=== PATIENT | male | born 1935 | race Caucasian/White ===

== ENCOUNTER 2018-12-16 12:01 | Inpatient (IN) | payer MEDICARE, BC ==
[~2018-12-16] VITALS: Ht 167.6 cm; Wt 72.6 kg
--- NOTE | 2018-12-16 12:15 | NUR ---
RECIEVED FROM [facility]/PRIVATE CAR TO ROOM 1112B.CL IN REACH AND ORIENTED TO ROOM AND SURROUNDINGS.
[2018-12-16] MEDS ORDERED: CARTIA XT120 MG PO (12:35)
[2018-12-16] MEDS ORDERED: MELATONIN5 MG PO (12:36)
[2018-12-16] MEDS ORDERED: FISH OIL 1,0001 CA1 PO (12:36)
[2018-12-16] MEDS ORDERED: HYDROCHLOROTHIA25 MG PO (12:36)
[2018-12-16] MEDS ORDERED: PROTONIX40 MG PO (12:37)
[2018-12-16] MEDS ORDERED: PRAVACHOL20 MG PO (12:37)
[2018-12-16] MEDS ORDERED: FLOMAX0.4 MG PO (12:38)
[2018-12-16] MEDS ORDERED: INDERAL 40 MG T40 MG PO (12:38)
[2018-12-16 14:16] VITALS: BP 134/56; BMI 25.8
--- NOTE | 2018-12-16 16:00 | NUR ---
RESTING QUIETLY.CL IN REACH.
[2018-12-16 21:24] VITALS: BP 122/59
--- NOTE | 2018-12-16 22:36 | NUR ---
THE PATIENT WAS LYING IN BED AND WATCHING TELEVISION WHEN STAFF ENTERED HIS ROOM. BED IS IN THE LOW POSITION WITH SIDERAILS X2 AND CALL LIGHT WITHIN REACH. THE PATIENT WAS EDUCATED ON THE USE OF A CALL LIGHT AND DEMONSTRATES UNDERSTANDING VIA TEACHBACK METHOD. THE PATIENT APPEARS COMFORTABLE WITH NO QUESTIONS OR CONCERNS AT THIS TIME.
--- NOTE | 2018-12-17 03:24 | NUR ---
THE PATIENT APPEARS TO BE SLEEPING COMFORTABLY WITH SIDERAILS UP X2 AND CALL LIGHT WITHIN REACH.
[2018-12-17 06:30] LABS: BASOPHILS 0.2 % (0-2); EOSINOPHILS 2.5 % (0-7); HEMATOCRIT 27.3 % (42.0-54.0); HEMOGLOBIN 9.1 g/dL (13.5-17.5); IMMATURE GRANULOCYTES 0.4 % (0-5); LYMPHOCYTES 12.7 % (15-50); MCHC 33.3 g/dL (31.0-37.0); MCV 86.9 fL (80.0-100.0); MEAN PLATELET VOLUME 9.4 fL (7.4-10.4); MONOCYTES 15.6 % (2-11); NEUTROPHILS 68.6 % (40-80); PLATELET COUNT 218 10x3/uL (130-400); RBC 3.14 10x6/uL (4.20-6.10); RDW 14.1 % (11.5-14.5); WBC 4.5 10x3/uL (4.8-10.8)
[2018-12-17 06:42] LABS: CALC OSMOLALITY 276 mosm/kg (275-300); CALCIUM 8.3 mg/dL (8.5-10.1); CARBON DIOXIDE 24.3 mmol/L (21.0-32.0); CHLORIDE - SERUM 103 mmol/L (98-107); GLUCOSE 126 mg/dL (74-106); POTASSIUM - SERUM 3.8 mmol/L (3.5-5.1); SODIUM 136 mmol/L (136-145); UREA NITROGEN 21 mg/dL (7-18); eGFR NON AFRICAN AMERICAN 76 mL/min (90-120)
[2018-12-17 08:10] VITALS: BP 151/63
--- NOTE | 2018-12-17 08:30 | NUR ---
I have reviewed this patient and I concur with the Shift Assessment completed by the Licensed Practical Nurse today this shift.
--- NOTE | 2018-12-17 09:27 | NUR ---
PATIENT SITTING UP IN BED. ALERT/ORIENT. CALL LIGHT WITHIN REACH. VOICES NO NEEDS AT THIS TIME. WILL CONTINUE WITH PLAN OF CARE
--- NOTE | 2018-12-17 11:21 | NUR ---
DR Nell ROY INTO SEE PATIENT. NEW ORDERS RECEIVED
[2018-12-17 19:21] VITALS: BP 141/53
--- NOTE | 2018-12-17 19:49 | NUR ---
THE PATIENT WAS LYING IN BED WHEN STAFF ENTERED HIS ROOM. BED IS IN THE LOW POSITION WITH SIDERAILS X2 AND CALL LIGHT WITHIN REACH. THE PATIENT WAS EDUCATED ON THE NEED TO CALL FOR ASSISTANCE WHENEVER HE NEEDS TO GET OUT OF BED. THE PATIENT DEMONSTRATES UNDERSTANDING VIA TEACHBACK METHOD. THE PATIENT APPEARS COMFORTABLE WITH NO QUESTIONS OR CONCERNS AT THIS TIME.
[2018-12-18 07:03] LABS: BASOPHILS 0 % (0-2); EOSINOPHILS 2.3 % (0-7); HEMATOCRIT 29.1 % (42.0-54.0); HEMOGLOBIN 9.6 g/dL (13.5-17.5); IMMATURE GRANULOCYTES 0.2 % (0-5); LYMPHOCYTES 14.3 % (15-50); MCH 28.7 pg (26.0-34.0); MCV 86.9 fL (80.0-100.0); MEAN PLATELET VOLUME 9.8 fL (7.4-10.4); NEUTROPHILS 68.2 % (40-80); PLATELET COUNT 232 10x3/uL (130-400); RBC 3.35 10x6/uL (4.20-6.10); RDW 13.9 % (11.5-14.5); WBC 4.8 10x3/uL (4.8-10.8)
[2018-12-18 07:05] LABS: CALC OSMOLALITY 274 mosm/kg (275-300); CALCIUM 8.6 mg/dL (8.5-10.1); CARBON DIOXIDE 27.4 mmol/L (21.0-32.0); CHLORIDE - SERUM 102 mmol/L (98-107); CREATININE - SERUM 0.9 mg/dL (0.6-1.3); GLUCOSE 123 mg/dL (74-106); POTASSIUM - SERUM 3.8 mmol/L (3.5-5.1); SODIUM 136 mmol/L (136-145); UREA NITROGEN 18 mg/dL (7-18); eGFR NON AFRICAN AMERICAN 86 mL/min (90-120)
--- NOTE | 2018-12-18 07:57 | NUR ---
PATIENT SITTING UP IN BED TO EAT BREAKFAST. ALERT/ORIENT. CALL LIGHT WITHIN REACH. VOICES NO NEEDS AT THIS TIME. WILL CONTINUE WITH PLAN OF CARE
[2018-12-18 08:00] VITALS: BP 168/58
--- NOTE | 2018-12-18 09:47 | RHP ---
PATIENT: FCO DOVER MEDICAL RECORD: [id number] ACCOUNT: [id number] LOCATION:[facility]1112 : 37 ADMISSION DATE: 12/16/18 REHABILITATION HISTORY AND PHYSICAL EXAMINATION POST ADMISSION PHYSICIAN EXAMINATION ADMITTING DIAGNOSIS: Debility secondary to GI bleed. HISTORY OF PRESENT ILLNESS: The patient is an 83-year-old gentleman who presented to the ED with complaint of abdominal pain, persistent for 3-4 weeks, worsened on December 08 on the day of admit. He had been to the walk-in clinic 3 times. He had been diagnosed with UTI and placed on Bactrim, Cipro, and Macrobid. He had a CT of his abdomen and pelvis on November 29, did not show anything acute. He had positive stool for blood. He has continued to have occult blood during his stay in the acute hospital stay and had an acute GI consult. He had an EGD on December 15. Currently, on IV antibiotic therapy and IV meds; monitoring his labs closely; decreased H&H, requiring blood transfusion; generalized weakness; impaired mobility; gait disturbance; and decreased activity tolerance. He is at high risk for falls, lives alone, and has self-care deficits. These are all barriers to his discharge home. He lives at home alone in a condo, was independent with mobility and ADLs. Currently, he is set up for mod assist for ADLs and mod assist for his mobility. He and his friends, which have been coworkers in the past, are very active in his care. He has no immediate family. Plan is for him to return home hopefully at his prior level of functioning or possibly improved. COMORBIDITIES: Include hypertension, osteoarthritis, anemia, debility, deconditioning, and history of a broken ankle that causes problems with ambulation. 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 PAST MEDICAL HISTORY: Include ankle fracture. He has had arthritis, history of an endovascular stent for AAA, hypertension, hyperlipidemia, osteoarthritis, and former tobacco use. PAST SURGICAL HISTORY: Includes appendectomy and ORIF of his ankle, right shoulder surgery, and stenting to his AAA. ALLERGIES: PENICILLIN. CURRENT MEDICATIONS: Include propranolol 40 mg daily. He is on hydrochlorothiazide 25 mg daily and omega-3 four caps daily. He is on diltiazem 120 daily, Flomax 0.4 mg at bedtime, Pravachol 20 mg at bedtime, melatonin 6 mg at bedtime p.r.n., and Protonix 40 mg daily. HABITS: He does have a distant use of tobacco use. FAMILY HISTORY: Noncontributory. SOCIAL HISTORY: As above. The patient hopes to be able to return back home. He does have strong support from friends that we check on him on a regular basis. PHYSICAL EXAMINATION: VITAL SIGNS: Stable. He is afebrile. HISTORY AND PHYSICAL [id number] FCO DOVER GENERAL: A well-developed gentleman, in no acute distress, alert upon exam. HEENT: Normocephalic and atraumatic. Mucosa moist. NECK: Supple. No lymphadenopathy. LUNGS: Clear at this time. HEART: Regular rate and rhythm. No murmurs, rubs, or gallops. ABDOMEN: Soft, benign, nontender, and nondistended. Positive bowel sounds times 4. EXTREMITIES: No clubbing, cyanosis, or edema. He does have surgical changes to his ankle. NEUROLOGIC: He seems intact. LABORATORY DATA: His white count is 4.5, H&H of 9 and 27, and platelet count is noted to be 218. Sodium 136, potassium 3.8, BUN and creatinine of 21 and 1.0, and blood sugar is noted to be 126. ASSESSMENT: This is an 83-year-old gentleman admitted to the rehab with working diagnosis of debility, complicated by GI bleed. The patient has potential to make improvement. We will institute the following multidisciplinary therapies including, but not limited to physical, occupational, respiratory, speech, nutritional services, prosthetics, and orthotics. Given his complex medical conditions and risk for further medical complications, rehabilitation services cannot be provided at a low level of care such as correction facility. PLAN: 1. Admit to [facility] for intensive inpatient therapy to include the following disciplines; A. Physical therapy to improve gait, all transfer skills, and bed mobility to modified independent level. B. Occupational therapy to improve activities of daily living to modified independent level. C. Case management to assist with discharge planning and placement options. D. Nutrition to assist with nutritional needs. E. Rehabilitation nursing to assist in monitoring the patient's underlying medical conditions and to assist with any type of bowel or bladder management. 2. The patient's current medications and medical care will be continued. 3. The patient will be placed on standard fall precautions. 4. The patient's estimated length of stay is approximately 7-10 days. 5. We will discuss this patient during care team staff meeting this week. TRANSINT:[id number] Voice Confirmation ID: [id number] DOCUMENT ID: [id number] CHRIS notes whether there has been none or any medical/functional change since admission: - No change since pre-admission screen. CHRIS attests patient continues to be appropriate for IRF: - Continues to be appropriate. HISTORY AND PHYSICAL [id number] FCO DOVER,LIZA JOLLEY MD at 0947 CC: [id number] DICTATION DATE: 12/17/18 1102 DIE CUTTER APPRENTICE: 12/17/18 1529 ADM IN [place] [id number] [place] [address]
--- NOTE | 2018-12-18 11:13 | NUR ---
PATIENT IN REHAB ROOM. WORKING WITH PHYSICAL THERAPIST
[2018-12-18 12:49] VITALS: Ht 167.6 cm; Wt 72.6 kg
--- NOTE | 2018-12-18 14:04 | NUR ---
PATIENT AMBULATES WITH MODERATE ASST FROM BED TO WHEELCHAIR.
--- NOTE | 2018-12-18 15:23 | NUR ---
PATIENT IN REHAB ROOM. WORKING WITH OCCUPATIONAL THERAPIST
--- NOTE | 2018-12-18 19:25 | NUR ---
ASSESSMENT PER FLOW SHEET, PT DENIES FALTUS, BM YESTERDAY AND USING URINAL FOR VOIDING, EMPTIED 125 MLS OF DARK YELLOW URINE FROM URINAL, RIGHT ANKLE NOTED WITH EDEMA, PT STATES "IT'S BEEN DOING THAT EVER SINCE I BROKE MY ANKLE 40 YEARS AGO", PT DENIES NEEDS OR PAIN AT THIS TIME, BED IN LOW POSITION, SIDE RAILS X 2, CALL LIGHT IN REACH
--- NOTE | 2018-12-18 20:20 | NUR ---
PT WATCHING TV, SERVED FRESH H20, MENU TO PT TO FILL OUT, DENIES ANY ASSISTANCE WITH MENU
[2018-12-18 20:38] VITALS: BP 120/54
--- NOTE | 2018-12-18 21:19 | NUR ---
PT AWAKE, WATCHING TV, ADM 2100 MEDS PER MD ORDERS, SEE EMAR, PT DENIES NEEDS OR PAIN AT THIS TIME, BED IN LOW POSITION, SIDE RAILS X 2, CALL LIGHT IN REACH
--- NOTE | 2018-12-18 22:15 | NUR ---
REPORT TO SADIQ Iqbal LPN
--- NOTE | 2018-12-18 22:39 | NUR ---
REST IN BED. CALL LIGHT IN REACH.
--- NOTE | 2018-12-19 03:56 | NUR ---
REST IN BED. CALL LIGHT IN REACH.
--- NOTE | 2018-12-19 04:46 | NUR ---
PT IN BED LOWEST POSITION, EYES CLOSED AROUSES EASILY TO VOICE, RESPIRATIONS EVEN AND UNLABORED, NO NEEDS NOTED, FLUIDS AND CALL LIGHT WITHIN REACH I have reviewed this patient and I concur with the Shift Assessment completed by the Licensed Practical Nurse today this shift.
--- NOTE | 2018-12-19 07:27 | NUR ---
RECEIVED REPORT. LYING IN BED ON RIGHT EYES CLOSED RESTING. RR EVEN AND UNLABORED. CALL LIGHT WITHIN REACH, FALL PRECAUTIONS IN PLACE. WILL CONTINUE TO MONITOR
[2018-12-19 08:00] VITALS: BP 123/63
--- NOTE | 2018-12-19 11:33 | NUR ---
IN THERAPY GYM PARTICIPATING IN PT WITH CESARIO
--- NOTE | 2018-12-19 14:07 | NUR ---
LYING IN BED WATCHING TV. DENIES ANY NEEDS OR PAIN. NO SIGNS OF DISTRESS NOTED. CALL LIGHT WITHIN REACH, FALL PRECAUTIONS IN PLACE.
[2018-12-19 19:47] VITALS: BP 118/58
--- NOTE | 2018-12-19 20:00 | NUR ---
PATIENT RECEIVED SITTING UP IN BED WATCHING TV. CALL LIGHT IN HAND. ALARM ON. VITAL SIGNS & ASSESSMENT DONE. PATIENT HAD NO C/O PAIN OR DISTRESS. BEDSIDE TABLE & URINAL WITHIN REACH. WILL CONTINUE TO MONITOR.
--- NOTE | 2018-12-20 01:17 | NUR ---
PT IN BED LOWEST POSITION, EYES CLOSED AROUSES EASILY TO VOICE, RESPIRATIONS EVEN AND UNLABORED, NO NEEDS NOTED, FLUIDS AND CALL LIGHT WITHIN REACH
[2018-12-20 06:33] LABS: BASOPHILS 0.2 % (0-2); EOSINOPHILS 2.3 % (0-7); HEMOGLOBIN 9.3 g/dL (13.5-17.5); IMMATURE GRANULOCYTES 0.6 % (0-5); LYMPHOCYTES 14.4 % (15-50); MCH 28.7 pg (26.0-34.0); MCHC 33.2 g/dL (31.0-37.0); MCV 86.4 fL (80.0-100.0); MEAN PLATELET VOLUME 9.1 fL (7.4-10.4); NEUTROPHILS 67.5 % (40-80); PLATELET COUNT 225 10x3/uL (130-400); RBC 3.24 10x6/uL (4.20-6.10); RDW 13.8 % (11.5-14.5); WBC 5.3 10x3/uL (4.8-10.8)
[2018-12-20 06:47] LABS: ANION GAP 10.6 mmol/L (8-16); CALCIUM 8.3 mg/dL (8.5-10.1); CARBON DIOXIDE 27.3 mmol/L (21.0-32.0); POTASSIUM - SERUM 3.9 mmol/L (3.5-5.1)
[2018-12-20 06:53] LABS: CREATININE - SERUM 1.2 mg/dL (0.6-1.3)
[2018-12-20 07:47] VITALS: BP 145/77
--- NOTE | 2018-12-20 10:16 | NUR ---
PT RESTING IN BED WITH EYES OPEN CALL LIGHT IN REACH NO PROBLEMS WILL MONITERS
--- NOTE | 2018-12-20 15:22 | NUR ---
CARE TEAM MEETING: PATIENT DOING WELL IN THERAPY AND TENATIVE DISCHARGE DATE TO GOING HOME IS 12/26/18. WILL CONTINUE TO FOLLOW WITH PATIENT AND WILL ASSIT WITH DISCHARGE NEEDS.
--- NOTE | 2018-12-20 17:00 | NUR ---
I have reviewed this patient and I concur with the Shift Assessment completed by the Licensed Practical Nurse today this shift.
--- NOTE | 2018-12-20 17:07 | NUR ---
PT RESTING IN BED WITH EYES OPEN CALL LIGHT IN REACH NO PROBLEMS WILL MONITER
--- NOTE | 2018-12-20 18:01 | NUR ---
PT RESTING IN BED WITH EYES OPEN CALL LIGHT IN REACH WILL MONITER
[2018-12-20 19:41] VITALS: BP 134/48
--- NOTE | 2018-12-20 20:01 | NUR ---
PATIENT RECEIVED SITTING UP IN BED WATCHING TV. VITAL SIGNS & ASSESSMENT DONE. NO C/O PAIN OR DISTRESS. BED LOW. ALARM ON. CALL LIGHT WITHIN REACH. WILL CONTINUE TO MONITOR.
--- NOTE | 2018-12-21 03:30 | NUR ---
I have reviewed this patient and I concur with the Shift Assessment completed by the Licensed Practical Nurse today this shift.
--- NOTE | 2018-12-21 03:37 | NUR ---
PATIENT EYES CLOSED. RESPIRATIONS 18 & EVEN. BED LOW. ALARM ON. CALL LIGHT WITHIN REACH. WILL CONTINUE TO MONITOR.
[2018-12-21 08:13] VITALS: BP 102/54
--- NOTE | 2018-12-21 16:39 | NUR ---
RESTING QUIETLY IN BED. EYES CLOSED. NO S/S DISTRESS. CALL LIGHT IN REACH. BED IN LOWEST POSITION, SIDE RAILS UP X2.
--- NOTE | 2018-12-21 17:32 | NUR ---
SITTING UP IN BED EATING SUPPER AND WATCHING TV. DENIES NEEDS. USES URINAL. CALL LIGHT IN REACH. SIDE RAILS UP X2.
[2018-12-21 19:00] VITALS: BP 141/46
--- NOTE | 2018-12-21 20:00 | NUR ---
PATIENT RECEIVED SITTING UP IN BED WATCHING TV. ASSESSMENT & VITAL SIGNS DONE. NO C/O PAIN OR DISTRESS. BED LOW. CALL LIGHT & URINAL WITHIN REACH. ALARM ON. WILL CONTINUE TO MONITOR.
--- NOTE | 2018-12-22 02:10 | NUR ---
PATIENT EYES CLOSED. RESPIRATIONS 18 & EVEN. BED LOW. ALARM ON. URINAL EMPTIED, 300 CC OF URINE. CALL LIGHT WITHIN REACH. WILL CONTINUE TO MONITOR.
--- NOTE | 2018-12-22 07:31 | NUR ---
PT RESTING IN BED WITH EYES OPEN CALL LIGHT IN REACH NO PROBLEMS WILL MONITER
[2018-12-22 07:34] LABS: BASOPHILS 0.2 % (0-2); EOSINOPHILS 1.1 % (0-7); HEMATOCRIT 27.7 % (42.0-54.0); HEMOGLOBIN 9.2 g/dL (13.5-17.5); IMMATURE GRANULOCYTES 0.2 % (0-5); LYMPHOCYTES 14.2 % (15-50); MCH 28.7 pg (26.0-34.0); MCHC 33.2 g/dL (31.0-37.0); MCV 86.3 fL (80.0-100.0); MEAN PLATELET VOLUME 9.4 fL (7.4-10.4); MONOCYTES 10.7 % (2-11); NEUTROPHILS 73.6 % (40-80); PLATELET COUNT 259 10x3/uL (130-400); RBC 3.21 10x6/uL (4.20-6.10); RDW 13.7 % (11.5-14.5); WBC 5.4 10x3/uL (4.8-10.8)
[2018-12-22 08:09] LABS: CALCIUM 8.6 mg/dL (8.5-10.1); CARBON DIOXIDE 28.1 mmol/L (21.0-32.0); CREATININE - SERUM 1.1 mg/dL (0.6-1.3); POTASSIUM - SERUM 4.1 mmol/L (3.5-5.1)
[2018-12-22 09:00] VITALS: BP 137/64
[2018-12-22 19:29] VITALS: BP 116/43
--- NOTE | 2018-12-22 19:44 | NUR ---
THE PATIENT WAS LYING IN BED AND WATCHING TELEVISION WHEN STAFF ENTERED HIS ROOM. BED IS IN THE LOW POSITION WITH SIDERAILS X2 AND CALL LIGHT WITHIN REACH. THE PATIENT WAS EDUCATED ON AND DEMONSTRATES APPROPRIATE USE OF A CALL LIGHT. THE PATIENT APPEARS COMFORTABLE WITH NO QUESTIONS OR CONCERNS AT THIS TIME.
--- NOTE | 2018-12-23 05:11 | NUR ---
THE PATIENT IS AWAKE AND TALKING TO STAFF. HE HAS NO QUESTIONS OR CONCERNS AT THIS TIME.
[2018-12-23 07:55] VITALS: BP 156/53
--- NOTE | 2018-12-23 08:15 | NUR ---
PT RESTING IN BED WITH EYES OPEN CALL LIGHT IN REACH WILL MONITER
--- NOTE | 2018-12-23 12:55 | NUR ---
I have reviewed this patient and I concur with the Shift Assessment completed by the Licensed Practical Nurse today this shift.
--- NOTE | 2018-12-23 18:21 | NUR ---
PT RESTING IN BED WITH EYES OPEN CALL LIGHT IN REACH WILL MONITER
--- NOTE | 2018-12-23 19:26 | NUR ---
THE PATIENT WAS LYING IN BED AND WATCHING TELEVISION WHEN STAFF ENTERED HIS ROOM. BED IS IN THE LOW POSITION WITH SIDERAILS X2 AND CALL LIGHT WITHIN REACH. THE PATIENT WAS EDUCATED ON THE NEED TO CALL FOR STAFF WITH ANY ADL ASSISTANC3. THE PATIENT DEMONSTRATES UNDERSTANDING VIA TEACHBACK METHOD. THE PATIENT APPEARS COMFORTABLE AND HAS NO QUESTIONS OR CONCERNS AT THIS TIME.
[2018-12-23 20:38] VITALS: BP 140/51
--- NOTE | 2018-12-24 12:46 | NUR ---
I have reviewed this patient and I concur with the Shift Assessment completed by the Licensed Practical Nurse today this shift.
--- NOTE | 2018-12-24 15:54 | NUR ---
PT GIVEN SHOWER LINENS CHANGED PT TOLERATED WELL PT ASSISTED BACK TO BED CALL LIGHT IN REACH
--- NOTE | 2018-12-24 17:49 | NUR ---
PT RESTING IN BED WITH EYES OPEN CALL LIGHT IN REACH WILL MONITER
--- NOTE | 2018-12-24 19:53 | NUR ---
THE PATIENT WAS LYING IN BED AND WATCHING TELEVISION WHEN STAFF ENTERED HIS ROOM. BED IS IN THE LOW POSITION WITH SIDERAILS X2 AND CALL LIGHT WITHIN REACH. THE PATIENT WAS EDUCATED TO CALL FOR STAFF ASSISTANCE WHENEVER HE NEEDS HELP WITH ADLS. THE PATIENT DEMONSTRATES UNDERSTANDING VIA TEACHBACK METHOD. THE PATIENT APPEARS COMFORTABLE WITH NO QUESTIONS OR COCNERNS AT THIS TIME.
[2018-12-24 20:37] VITALS: BP 128/47
[2018-12-25 06:30] LABS: BASOPHILS 0.3 % (0-2); EOSINOPHILS 3.3 % (0-7); HEMATOCRIT 29.4 % (42.0-54.0); HEMOGLOBIN 9.5 g/dL (13.5-17.5); IMMATURE GRANULOCYTES 0.3 % (0-5); LYMPHOCYTES 23.9 % (15-50); MCH 28.2 pg (26.0-34.0); MCHC 32.3 g/dL (31.0-37.0); MCV 87.2 fL (80.0-100.0); MEAN PLATELET VOLUME 9.2 fL (7.4-10.4); MONOCYTES 11.3 % (2-11); NEUTROPHILS 60.9 % (40-80); PLATELET COUNT 311 10x3/uL (130-400); RBC 3.37 10x6/uL (4.20-6.10); RDW 13.4 % (11.5-14.5)
[2018-12-25 06:47] LABS: ANION GAP 10.5 mmol/L (8-16); CALCIUM 8.7 mg/dL (8.5-10.1); CARBON DIOXIDE 28.2 mmol/L (21.0-32.0); CREATININE - SERUM 1.2 mg/dL (0.6-1.3); POTASSIUM - SERUM 3.7 mmol/L (3.5-5.1)
--- NOTE | 2018-12-25 09:06 | NUR ---
PT AM MEDS ADMINISTERED. PT DENIES NEEDS. WCTM.
[2018-12-25 09:33] VITALS: BP 135/45
--- NOTE | 2018-12-25 19:15 | NUR ---
AWAKE AND ALERT. SITTING UP IN BED WATCHING TV. RESPIRAITONS UNLABORED. NO DISTRESS NOTED. STATES "I FEEL OK, I THINK IM GOING HOME TOMORROW." NO NEEDS VOICED. CALL LIGHT IN REACH.
[2018-12-25 20:22] VITALS: BP 144/44
--- NOTE | 2018-12-26 02:23 | NUR ---
RESTING IN BED WITH RESPIRAITONS UNLABORED. NO DISTRESS NOTED. CALL LIGHTSANJAY OLIVERA.
--- NOTE | 2018-12-26 05:05 | NUR ---
QUIET HOURS. RESTING IN BED WITH RESPIRATIONS UNLABORED. NO DISTRESS NOTED.
[2018-12-26 08:00] VITALS: BP 125/62
--- NOTE | 2018-12-26 08:16 | NUR ---
PT AM MEDS ADMINISTERED. PT DENIES NEEDS. WCTM.
--- NOTE | 2018-12-26 09:04 | NUR ---
PATIENT DISCHARGING HOME TODAY. [facility] WILL PROVIDE THERAPY AT HOME. [facility] WILL DELIVER A ROLLING WALKER TO PATIENT. DR. BARILLAS 01/01/19 @ 3:50. PATIENT CHOICE FORMS AND IMFM FORMS SIGNED, COPY GIVEN TO PATIENT AND FILED IN CHART. DISCHARGE INSTRUCTIONS WITH [facility]IM DATA FAXED TO PCP, HOME HEALTH AND REVIEWED WITH PATIENT.
--- NOTE | 2018-12-26 12:22 | NUR ---
PT DISCHARGE INSTRUCTINS REV'D AND PT STATES UNDERSTANDING. PT MEDICATIONS CALLED IN TO [facility]. PT DISCHARGING HOME WITH [facility], TAKEN OUT VIA WHEELCHAIR BY HOSPITAL STAFF.
== END 2018-12-26 12:24 | disposition home health service (06) | DRG 947 ==
LOC: D.REHAB 12:01
PROVIDERS: ADMIT Emergency Medicine; ATTEND Emergency Medicine
DX: R53.81 Other malaise (principal); K29.81 Duodenitis with bleeding; K92.2 Gastrointestinal hemorrhage, unspecified; M19.90 Unspecified osteoarthritis, unspecified site; I10 Essential (primary) hypertension; D64.9 Anemia, unspecified; E78.5 Hyperlipidemia, unspecified; Z87.891 Personal history of nicotine dependence; F03.90 Unspecified dementia, unspecified severity, without behavioral disturbance, psychotic disturbance, mood disturbance, and anxiety

== ENCOUNTER 2019-01-15 18:18 | Inpatient (IN) | payer MEDICARE, BC ==
[~2019-01-15] VITALS: Ht 167.6 cm; Wt 73.9 kg
[~2019-01-15 18:18] MED LIST: CARTIA XT120 MG PO; FISH OIL 1,0001 CA1 PO; FLOMAX0.4 MG PO; HYDROCHLOROTHIA25 MG PO; INDERAL 40 MG T40 MG PO; MELATONIN5 MG PO; PRAVACHOL20 MG PO; PROTONIX40 MG PO
[2019-01-15 20:00] VITALS: BP 102/52; BMI 26.3
--- NOTE | 2019-01-15 20:52 | NUR ---
PT ARRIVED AT 1725, VIA WC FROM [facility] ED VIA PERSONAL AUTOMOBILE, ACCOMPANIED BY LAURA MILLER, SETTLED INTO ROOM, INTRODUCED TO STAFF AND ACCLIMATED TO ROOM, BED CONTROLS, CALL LIGHT
--- NOTE | 2019-01-16 03:16 | NUR ---
I have reviewed this patient and I concur with the Shift Assessment completed by the Licensed Practical Nurse today this shift.
--- NOTE | 2019-01-16 03:20 | NUR ---
PT CONTINUES TO TALK TO SELF OUTLOUD, MAKES REMARKS COMPLETELY OUT OF CONTEXT,
--- NOTE | 2019-01-16 03:20 | NUR ---
PT IN BED LOWEST POSITION, EYES CLOSED, AROUSES TO VOICE, RESPIRATIONS EVEN AND UNLABORED, NO NEEDS NOTED AT THIS TIME, FLUIDS AND CALL LIGHT WITHIN REACH.
[2019-01-16 06:00] LABS: BASOPHILS 0.2 % (0-2); EOSINOPHILS 0.1 % (0-7); HEMATOCRIT 25.5 % (42.0-54.0); HEMOGLOBIN 8.4 g/dL (13.5-17.5); IMMATURE GRANULOCYTES 1.2 % (0-5); LYMPHOCYTES 8.5 % (15-50); MCH 28.9 pg (26.0-34.0); MCHC 32.9 g/dL (31.0-37.0); MCV 87.6 fL (80.0-100.0); MEAN PLATELET VOLUME 11.6 fL (7.4-10.4); MONOCYTES 9.5 % (2-11); NEUTROPHILS 80.5 % (40-80); RBC 2.91 10x6/uL (4.20-6.10); RDW 14.8 % (11.5-14.5); WBC 8.5 10x3/uL (4.8-10.8)
[2019-01-16 06:34] LABS: ANION GAP 19.2 mmol/L (8-16); CARBON DIOXIDE 23.7 mmol/L (21.0-32.0); POTASSIUM - SERUM 5.9 mmol/L (3.5-5.1)
[2019-01-16 06:47] LABS: PLATELET COUNT 235 10x3/uL (130-400)
[2019-01-16 07:49] VITALS: BP 145/55
--- NOTE | 2019-01-16 10:38 | NUR ---
SITTING IN WC. STILL CONFUSED. 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
--- NOTE | 2019-01-16 12:12 | NUR ---
STILL VERY CONFUSED. WILL GET UP AND WANDER AROUND IF NOT SUPERVISED. COOPERATIVE AND PLEASANT. CURRENTLY SITTING IN WC EATING LUNCH IN ROOM. CALL LIGHT IN REACH
[2019-01-16] MEDS ORDERED: METOPROLOL TART50 MG PO (14:38)
[2019-01-16 14:52] VITALS: Ht 167.6 cm; Wt 73.9 kg
[2019-01-16 18:55] LABS: % SATURATION 14 % (15-55); IRON 37 ug/dl (35-150); TOTAL IRON BIND CAPACITY 247 ug/dl (260-445); UNSAT IRON BIND CAPACITY 210 ug/dl (150-375)
--- NOTE | 2019-01-16 19:20 | NUR ---
FOUND PT NOT SITTING WHEELCHAIR APPROPRIATLY IN BATHROOM. PT ROOMMATE STATED PT HAD BEEN IN BATHROOM FOR 2 HRS. ASSISTED PT BACK INTO UPRIGHT POSITION INTO WHEELCHAIR AND IN BED. DENIES FALLING. BED IN LOW SIDE RAILS X2. CONFUSED. BED ALARM ON. LUNGS CLEAR. BOWEL ACTIVE X4. RESP EVEN AND UNLABORED. WILL CONTINUE TO MONITOR.
[2019-01-16 20:47] VITALS: BP 115/51
--- NOTE | 2019-01-17 01:10 | NUR ---
ASSISTED TO AND FROM BATHROOM. BED ALARM SOUNDING WHEN WALKED IN ROOM. WCTM BACK IN BED.
--- NOTE | 2019-01-17 06:13 | NUR ---
I have reviewed this patient and I concur with the Shift Assessment completed by the Licensed Practical Nurse today this shift.
[2019-01-17 06:31] LABS: BASOPHILS 0.4 % (0-2); EOSINOPHILS 1.6 % (0-7); HEMOGLOBIN 8.2 g/dL (13.5-17.5); IMMATURE GRANULOCYTES 0.9 % (0-5); LYMPHOCYTES 14.6 % (15-50); MCH 28.8 pg (26.0-34.0); MCHC 32.8 g/dL (31.0-37.0); MCV 87.7 fL (80.0-100.0); MEAN PLATELET VOLUME 11.4 fL (7.4-10.4); MONOCYTES 10.1 % (2-11); NEUTROPHILS 72.4 % (40-80); PLATELET COUNT 224 10x3/uL (130-400); RBC 2.85 10x6/uL (4.20-6.10); RDW 14.9 % (11.5-14.5)
[2019-01-17 06:44] LABS: ALBUMIN 2.7 g/dL (3.4-5.0); ANION GAP 13.4 mmol/L (8-16); BILIRUBIN - TOTAL 0.9 mg/dL (0.2-1.3); CALCIUM 8.8 mg/dL (8.5-10.1); CARBON DIOXIDE 24.2 mmol/L (21.0-32.0); CREATININE - SERUM 1.8 mg/dL (0.6-1.3); PROTEIN - SERUM 6.2 g/dL (6.4-8.2)
[2019-01-17 06:47] LABS: POTASSIUM - SERUM 4.6 mmol/L (3.5-5.1)
[2019-01-17 06:56] LABS: WBC 4.5 10x3/uL (4.8-10.8)
[2019-01-17 07:49] VITALS: BP 104/56
--- NOTE | 2019-01-17 19:40 | NUR ---
AWAKE AND SITTING IN CHAIR IN ROOM. RESPIRATIONS UNLABORED. HOLDING HEAD IN HANDS. DOES NOT SPEAK VERY MUCH. FRIEND IN ROOM STATED THAT "HE IS NOT HIMSELF" BUT THEN STATED SHE HAD NOTICED SIGNS OF FORGETFULNESS AND REPEATING HIMSELF IN THE LAST FEW MONTHS. REMAINS IN ISOLATION RELATED TO SHINGLES. EDUCATION DONE WITH PATIENT AND FRIEND WHO IS [employer]ICAL [employer].
[2019-01-17 19:47] LABS: APPEARANCE HAZY (CLEAR); BACTERIA MANY /hpf (NONE SEEN); BILIRUBIN NEGATIVE (NEGATIVE); COLOR YELLOW (YELLOW); GLUCOSE NEGATIVE (NEGATIVE); KETONE NEGATIVE (NEGATIVE); NITRITE NEGATIVE (NEGATIVE); PROTEIN NEGATIVE (NEGATIVE); RED CELLS - URINE 0-5 /hpf (0-5); UROBILINOGEN NORMAL (NORMAL); WHITE CELLS - URINE 25-50 /hpf (0-5)
[2019-01-17 20:40] VITALS: BP 121/45
--- NOTE | 2019-01-18 01:35 | NUR ---
RESTING IN BED WITH EYES CLOSED AND RESPIRATIONS UNLABORED. NO DISTRESS NOTED. CALL LIGHT IN REACH.
--- NOTE | 2019-01-18 05:05 | NUR ---
QUIET HOURS. NO ACUTE CHANGES IN CONDITION THIS SHIFT. REMAINS IN CONTACT ISOLATION. RESTING IN BED WITH RESPIRATIONS UNLABORED. CALL LIGHT IN REACH.
[2019-01-18 06:13] LABS: BASOPHILS 0.2 % (0-2); HEMATOCRIT 26.7 % (42.0-54.0); HEMOGLOBIN 8.7 g/dL (13.5-17.5); IMMATURE GRANULOCYTES 0.5 % (0-5); LYMPHOCYTES 9.2 % (15-50); MCH 28.8 pg (26.0-34.0); MCHC 32.6 g/dL (31.0-37.0); MCV 88.4 fL (80.0-100.0); MEAN PLATELET VOLUME 10.9 fL (7.4-10.4); NEUTROPHILS 69.1 % (40-80); PLATELET COUNT 203 10x3/uL (130-400); RBC 3.02 10x6/uL (4.20-6.10); RDW 15.1 % (11.5-14.5); WBC 4.3 10x3/uL (4.8-10.8)
[2019-01-18 07:33] LABS: ANION GAP 14.6 mmol/L (8-16); CALCIUM 8.5 mg/dL (8.5-10.1); CARBON DIOXIDE 23.7 mmol/L (21.0-32.0); CREATININE - SERUM 1.7 mg/dL (0.6-1.3); POTASSIUM - SERUM 4.3 mmol/L (3.5-5.1); THYROID STIMULATING HORMONE 1.07 uIU/mL (0.36-3.74)
[2019-01-18 08:15] VITALS: BP 114/61
--- NOTE | 2019-01-18 09:47 | NUR ---
PT AM MEDS ADMINISTERED. PT PARTICIPATING IN THERAPY AT THIS TIME. WCDINORA.
--- NOTE | 2019-01-18 15:34 | NUR ---
PATIENT ADMITTED TO REHAB FROM AN OUTSIDE FACILITY. DR. BARILLAS IS HIS PCP AND HE IS A CLIENT OF [facility]. DME AT HOME IS A ROLLING WALKER. WILL CONTINUE TO FOLLOW WITH PATIENT AND WILL ASSIT WITH NEEDS. DISCHARGE PLANS ARE FOR PATIENT TO RETURN HOME.
--- NOTE | 2019-01-18 16:20 | NUR ---
PT SITTING UP IN BED, VISITORS AT BEDSIDE. PT DENIES NEEDS. WCTM.
[2019-01-18 19:15] VITALS: BP 97/53
--- NOTE | 2019-01-18 19:18 | NUR ---
AWAKE AND ALERT. SITTING IN WHEELCHAIR IN ROOM. RESPIRATIONS UNLABORED. ASSISTED TO BED PER REQUEST. NOTED SOME CONFUSION AT TIMES. SAFETY MEASURES IN PLACE. CALL LIGHT IN REACH.
--- NOTE | 2019-01-19 05:13 | NUR ---
QUIET HOURS. RESTING IN BED WITH NO DISTRESS NOTED. NO ACUTE CHANGES IN CONDITION THIS SHIFT. CALL LIGHT IN REACH.
[2019-01-19 07:30] VITALS: BP 119/60
--- NOTE | 2019-01-19 08:04 | NUR ---
PT UP IN CHAIR EATING BREAKFAST CALL LIGHT IN REACH WILL MONITER
--- NOTE | 2019-01-19 17:48 | NUR ---
PT SITTING IN BED EATING SUPPER CALL LIGHT IN REACH NO PROBLEMS WILL MONITER
[2019-01-19 20:41] VITALS: BP 111/53
--- NOTE | 2019-01-19 22:15 | NUR ---
I have reviewed this patient and I concur with the Shift Assessment completed by the Licensed Practical Nurse today this shift.
--- NOTE | 2019-01-20 00:15 | NUR ---
RESTING IN BED WITH EYES CLOSED.
--- NOTE | 2019-01-20 03:40 | NUR ---
RESTING IN BED WITH EYES CLOSED. ASSISTED TO THE BATHROOM PRN.
[2019-01-20 05:47] LABS: HEMATOCRIT 24.1 % (42.0-54.0); HEMOGLOBIN 8.2 g/dL (13.5-17.5)
--- NOTE | 2019-01-20 06:26 | NUR ---
PT RESTING IN BED WITH EYES CLOSED. AWOKE EASILY TO VERBAL STIMULI. TOLERATED AM MED WITHOUT DIFFICULTY. NO FURTHER NEEDS VOICED.
[2019-01-20 07:24] VITALS: BP 121/56
--- NOTE | 2019-01-20 07:29 | NUR ---
RESTING WO DISTRESS. RESP EVEN AND UNLABORED. CL IN REACH.
--- NOTE | 2019-01-20 09:37 | NUR ---
PARTICIPATING IN THERAPY THIS AM.
--- NOTE | 2019-01-20 16:38 | NUR ---
ALERT AND AWAKE. WATCHING TV. NO C/O PAIN. CL IN REACH.
--- NOTE | 2019-01-20 18:15 | NUR ---
RESTING WITH EYES CLOSED. NO CHANGE IN ASSESSMENT.
[2019-01-20 19:30] VITALS: BP 133/66
--- NOTE | 2019-01-20 19:46 | NUR ---
PT IS RESTING IN BED WITH EYES CLOSED. NO ACUTE DISTRESS NOTED.
--- NOTE | 2019-01-20 23:00 | NUR ---
RESTING IN BED WITH EYES CLOSED.
--- NOTE | 2019-01-20 23:30 | NUR ---
I have reviewed this patient and I concur with the Shift Assessment completed by the Licensed Practical Nurse today this shift.
--- NOTE | 2019-01-21 04:35 | NUR ---
RESTING IN BED WITH EYES CLOSED.
[2019-01-21 06:27] LABS: HEMATOCRIT 26.3 % (42.0-54.0); HEMOGLOBIN 8.8 g/dL (13.5-17.5)
[2019-01-21 08:45] VITALS: BP 117/50
--- NOTE | 2019-01-21 10:03 | NUR ---
THE PATIENT APPEARED TO BE SLEEPING BUT EASILY AWOKE WHEN STAFF ENTERED HIS ROOM. BED IS IN THE LOW POSITION WITH SIDERAILS X3 AND CALL LIGHT WITHIN REACH. THE PATIENT WAS EDUCATED ON THE USE OF A CALL IGHT AND DEMONSTRATES UNDERSTANDING VIA TEACHBACK METHOD. THE PATIENT APPEARS COMFORTABLE WITH NO QUESTIOSN OR COCNERNS AT THIS TIME.
--- NOTE | 2019-01-21 19:45 | NUR ---
GREETED PATIENT AND INTRODUCED MYSELF. PATIENT IS LAYING IN BED IN SUPINE POSITION. SR UP X 2. BED IN LOWEST POSITION. DENIES ANY NEEDS AT THIS TIME. CALL LIGHT IN REACH.
[2019-01-21 21:43] VITALS: BP 131/50; BP 92/60
--- NOTE | 2019-01-22 00:11 | NUR ---
PATIENT AWAKE AND SITTING UP IN BED. PATIENT IS CONFUSED AND TRYING TO GET OUT OF BED. REORIENTATED TO SURROUNDINGS. CALL LIGHT IN REACH.
[2019-01-22 05:46] LABS: BASOPHILS 0.4 % (0-2); EOSINOPHILS 2.9 % (0-7); HEMATOCRIT 27.1 % (42.0-54.0); IMMATURE GRANULOCYTES 0.2 % (0-5); LYMPHOCYTES 15.4 % (15-50); MCH 28.5 pg (26.0-34.0); MCHC 33.2 g/dL (31.0-37.0); MCV 85.8 fL (80.0-100.0); MEAN PLATELET VOLUME 10.6 fL (7.4-10.4); MONOCYTES 9.6 % (2-11); NEUTROPHILS 71.5 % (40-80); PLATELET COUNT 192 10x3/uL (130-400); RBC 3.16 10x6/uL (4.20-6.10); RDW 14.7 % (11.5-14.5); WBC 4.5 10x3/uL (4.8-10.8)
[2019-01-22 05:59] LABS: ALBUMIN 2.5 g/dL (3.4-5.0); ANION GAP 11.9 mmol/L (8-16); BILIRUBIN - TOTAL 0.64 mg/dL (0.2-1.3); CALCIUM 8.5 mg/dL (8.5-10.1); CARBON DIOXIDE 25.1 mmol/L (21.0-32.0); CREATININE - SERUM 1.5 mg/dL (0.6-1.3); PROTEIN - SERUM 6.1 g/dL (6.4-8.2)
[2019-01-22 08:00] VITALS: BP 129/47
--- NOTE | 2019-01-22 08:00 | NUR ---
PATIENT IS ALERT/WITH CONFUSION NOTED. BED ALARM ON. CALL LIGHT WITHIN REACH. WILL CONTINUE WITH PLAN OF CARE
--- NOTE | 2019-01-22 08:00 | NUR ---
PATIENT IS ALERT/ORIENT. REQUESTED PRN ZOFRAN AND PRN TUMS. GIVEN BY THIS NURSE. CALL LIGHT WITHIN REACH. WILL CONTINUE WITH PLAN OF CARE
--- NOTE | 2019-01-22 09:15 | NUR ---
PRN XANAX GIVEN PER PATIENT REQUEST. PATIENT IN REHAB ROOM. WORKING WITH OCCUPATIONAL THERAIST
--- NOTE | 2019-01-22 09:19 | NUR ---
PATIENT IN REHAB ROOM. WORKING WITH PHYSICAL THERAPIST. DENIES ANY PAIN/DISC AT THIS TIME.
--- NOTE | 2019-01-22 13:30 | NUR ---
Nutrition Follow-up: Diet: AHA Cardiac, Low K PO intake: ~57% x last 5 days Patient remains confused. Spoke with patient's daughter who is concerned that he is not eating enough. States that meats are too tough except for turkey and dressing. Denies N/V. Denies constipation and diarrhea. Labs and meds reviewed. Wt: 162# Added mechanical soft restriction to diet. RD Following.
--- NOTE | 2019-01-22 14:48 | NUR ---
PRN TYLENOL GIVEN PER PATIENT REQUEST FORM SHINGLE PAIN/DISCOMFORT
--- NOTE | 2019-01-22 19:29 | NUR ---
PT RESTING QUIETLY. CL IN REACH. NO DISTRESS NOTED. BED IN LOW SIDE RAILS X2. BED ALARM ON. TM
--- NOTE | 2019-01-22 20:10 | NUR ---
PT LYING IN BED. CONFUSED ABOUT WHAT THE DINGING NOISE WAS COMING FROM BED ALARM ON. REORIENTATED. PT UNDERSTANDS NEEDING TO STAY IN BED UNLESS SOMEONE IS IN THE ROOM TO ASSIST HIM TO BATHROOM. DENIES FURTHER NEEDS. CL IN REACH. BED ALARM ON. LUNGS CLEAR. BOWEL ACTIVE X4. WCTM
[2019-01-22 20:21] VITALS: BP 123/45
--- NOTE | 2019-01-22 23:59 | NUR ---
PT RESTING QUIETLY. CL IN REACH. NO DISTRESS NOTED. WCTM RESP EVEN AND UNLABORED.
--- NOTE | 2019-01-23 06:21 | NUR ---
PT RESTING QUIETLY CL IN REACH. NO DISTRESS NOTED. WCTM
--- NOTE | 2019-01-23 06:48 | NUR ---
I have reviewed this patient and I concur with the Shift Assessment completed by the Licensed Practical Nurse today this shift.
[2019-01-23 06:54] LABS: HEMATOCRIT 27.1 % (42.0-54.0); HEMOGLOBIN 9.1 g/dL (13.5-17.5)
--- NOTE | 2019-01-23 08:00 | NUR ---
PT RESTING IN BED WITH EYES OPEN CALL LIGHT IN REACH NO PROBLEMS WILL MONITER
[2019-01-23 10:31] VITALS: BP 120/41
--- NOTE | 2019-01-23 13:20 | NUR ---
I have reviewed this patient and I concur with the Shift Assessment completed by the Licensed Practical Nurse today this shift.
--- NOTE | 2019-01-23 18:32 | NUR ---
PT RESTING IN BED WITH OPEN CALL LIGHT IN REACH NO PROBLEMS WILL MONITER
[2019-01-23 19:48] VITALS: BP 114/56
--- NOTE | 2019-01-23 20:05 | NUR ---
AWAKE AND ALERT. RESTING IN BED WITH RESPIRATIONS UNLABORED. REMAINS IN CONTACT ISOLATION. ORIENTED AT THIS TIME. NOTED RED SCABS/SHINGLES TO RIGHT THIGH AREA. NO C/O PAIN. NO DISTRESS NOTED. CALL LIGHT IN REACH.
--- NOTE | 2019-01-24 02:55 | NUR ---
RESTING IN BED WITH RESPIRATIONS UNLABORED. REMAINS IN CONTACT ISOLATION. NO DISTRESS NOTED. CALL LIGHT IN REACH.
--- NOTE | 2019-01-24 05:05 | NUR ---
QUIET HOURS. NO ACUTE CHANGES IN CONDITION THIS SHIFT. RESTING IN BED WITH NO DISTRESS NOTED. REMAINS IN ISOLATION. NO DISTRESS NOTED. CALL LIGHT IN REACH.
[2019-01-24 07:50] LABS: ANION GAP 12.9 mmol/L (8-16); CALCIUM 8.2 mg/dL (8.5-10.1); CARBON DIOXIDE 23.1 mmol/L (21.0-32.0); CREATININE - SERUM 1.5 mg/dL (0.6-1.3)
[2019-01-24 08:01] VITALS: BP 114/66
[2019-01-24 08:04] LABS: HEMATOCRIT 25.5 % (42.0-54.0); HEMOGLOBIN 8.6 g/dL (13.5-17.5); LYMPHOCYTES 15.5 % (15-50); MCH 29.5 pg (26.0-34.0); MCHC 33.7 g/dL (31.0-37.0); MCV 87.3 fL (80.0-100.0); MEAN PLATELET VOLUME 11.1 fL (7.4-10.4); NEUTROPHILS 71.1 % (40-80); RBC 2.92 10x6/uL (4.20-6.10); RDW 15.3 % (11.5-14.5); WBC 4.6 10x3/uL (4.8-10.8)
[2019-01-24 08:06] LABS: PLATELET COUNT 151 10x3/uL (130-400)
--- NOTE | 2019-01-24 16:09 | NUR ---
CARE TEAM MEETING: PATIENT PROGRESSING WELL IN THERAPY. TENATIVE DISCHARGE DATE IS 01/26/19. WILL CONTINUE TO FOLLOW WITH PATIENT AND WILL ASSIST WITH DISCHARGE NEEDS. PLANS ARE FOR PATIENT TO RETURN TO HIS HOME WITH HOME HEALTH.
[2019-01-24 19:35] VITALS: BP 123/47
--- NOTE | 2019-01-24 20:00 | NUR ---
PATIENT RECEIVED SITTING UP IN BED WATCHING TV. VITAL SIGNS & ASSESSMENT DONE. NO C/O PAIN OR DISTRESS. BED LOW. CALL LIGHT WITHIN REACH. WILL CONTINUE TO MONITOR.
[2019-01-24 22:00] VITALS: BP 140/51
--- NOTE | 2019-01-25 01:59 | NUR ---
I have reviewed this patient and I concur with the Shift Assessment completed by the Licensed Practical Nurse today this shift.
--- NOTE | 2019-01-25 03:39 | NUR ---
PATIENT EYES CLOSED. RESPIRATIONS 18 & EVEN. BED LOW. ALARM ON. CALL LIGHT WITHIN REACH. WILL CONTINUE TO MONITOR.
[2019-01-25 07:25] VITALS: BP 116/49
--- NOTE | 2019-01-25 08:15 | NUR ---
PT RESTING IN BED WITH EYES OPEN CALL LIGHT IN REACH NO PROBLEMS WILL MONITER
--- NOTE | 2019-01-25 16:47 | NUR ---
I have reviewed this patient and I concur with the Shift Assessment completed by the Licensed Practical Nurse today this shift.
--- NOTE | 2019-01-25 17:58 | NUR ---
PT RESTING IN BED VISITOR AT BEDSIDE CALL LIGHT IN REACH WILL MONITER
--- NOTE | 2019-01-25 19:25 | NUR ---
PT LYING IN BED WATCHING TV. CL IN REACH. ALERT BUT CONFUSED. DENIES NEEDS OR PAIN AT THIS TIME. BED IN LOW SIDE RAILS X2. RESP EVEN AND UNLABORED. LUNGS CLEAR. BOWEL ACTIVE X4. ORIENTATED TO SELF. BED ALARM ON. WILL CONTINUE TO MONITOR.
[2019-01-25 20:09] VITALS: BP 114/45
--- NOTE | 2019-01-25 23:12 | NUR ---
PT RESTING QUIETLY. CL IN REACH. NO DISTRESS NOTED. CPOC
--- NOTE | 2019-01-26 00:29 | NUR ---
I have reviewed this patient and I concur with the Shift Assessment completed by the Licensed Practical Nurse today this shift.
--- NOTE | 2019-01-26 02:56 | NUR ---
pt resting quietly. cl in reach. no distress noted. bed alarm on. wctm
--- NOTE | 2019-01-26 06:30 | NUR ---
PT BED ALARM SOUNDING. PT UP IN WHEELCHAIR WANTING TO GO TO SINK AND SHAVE AND GET READY FOR THE DAY. CHAIR ALARM. DENIES ASSISTANCE AT THIS TIME. WCTM CL IN REACH
[2019-01-26 06:36] LABS: BASOPHILS 0.3 % (0-2); EOSINOPHILS 2.3 % (0-7); HEMATOCRIT 25.9 % (42.0-54.0); HEMOGLOBIN 8.7 g/dL (13.5-17.5); IMMATURE GRANULOCYTES 0.8 % (0-5); LYMPHOCYTES 21.1 % (15-50); MCH 28.8 pg (26.0-34.0); MCHC 33.6 g/dL (31.0-37.0); MCV 85.8 fL (80.0-100.0); MEAN PLATELET VOLUME 10.5 fL (7.4-10.4); MONOCYTES 11.2 % (2-11); NEUTROPHILS 64.3 % (40-80); RBC 3.02 10x6/uL (4.20-6.10); RDW 15.6 % (11.5-14.5); WBC 3.9 10x3/uL (4.8-10.8)
[2019-01-26 06:39] LABS: CALCIUM 8.6 mg/dL (8.5-10.1); CARBON DIOXIDE 23.8 mmol/L (21.0-32.0); CREATININE - SERUM 1.3 mg/dL (0.6-1.3); POTASSIUM - SERUM 3.8 mmol/L (3.5-5.1)
[2019-01-26 07:01] LABS: PLATELET COUNT 183 10x3/uL (130-400)
[2019-01-26 07:51] VITALS: BP 105/50
--- NOTE | 2019-01-26 08:00 | NUR ---
SITTING IN WC IN ROOM. IS CONFUSED AND ANXIOUS TO GO HOME. THINKS SOMEONE STOLE HIS PANTS AND AFTERSHAVE SMELL GOOD (NOTHING STOLEN, HE DID NOT HAVE EITHER WITH HIM AT ADMIT). CALL LIGHT IN REACH
--- NOTE | 2019-01-26 10:09 | NUR ---
PATIENT DISCHARGING HOME TODAY WITH FRIENDS. [facility] WILL RESUME THERAPY AT HOME. NO NEW DME NEEDED AT THIS TIME. DR. BARILLAS 02/05/19 @ 11:40. PATIENT CHOICE FORM AND IMFM FORMS SIGNED, COPY GIVEN TO PATIENT AND FILED IN CHART. DISCHARGE INSTRUCTIONS WITH [facility]IM DATA FAXED TO PCP, HOME HEALTH AND REVIEWED WITH PATIENT.
--- NOTE | 2019-01-26 12:15 | NUR ---
DC HOME WITH POA. REVIEWED MEDS, DC PLAN, SAFETY ISSUES WTIH POA. PT LEFT FLOOR IN . MEDS CALLED IN TO PHARMACY.
== END 2019-01-26 12:30 | disposition home health service (06) | DRG 947 ==
LOC: D.REHAB 18:18
PROVIDERS: Family Medicine; ADMIT Emergency Medicine; ATTEND Emergency Medicine
DX: R53.81 Other malaise (principal); J96.01 Acute respiratory failure with hypoxia; N17.9 Acute kidney failure, unspecified; I10 Essential (primary) hypertension; D64.9 Anemia, unspecified; F03.90 Unspecified dementia, unspecified severity, without behavioral disturbance, psychotic disturbance, mood disturbance, and anxiety; M19.90 Unspecified osteoarthritis, unspecified site; I71.4 Abdominal aortic aneurysm, without rupture; I49.5 Sick sinus syndrome; I95.0 Idiopathic hypotension; E87.5 Hyperkalemia

== ENCOUNTER → 2019-02-20 15:10 | Outpatient (CLI) | payer MEDICARE ==
[2019-01-16 14:52] VITALS: BMI 26.3
[~2019-02-20 15:10] MED LIST changes: +METOPROLOL TART50 MG PO
[2019-02-20 15:39] LABS: CALCIUM 8.8 mg/dL (8.5-10.1); CARBON DIOXIDE 26.7 mmol/L (21.0-32.0); POTASSIUM - SERUM 3.7 mmol/L (3.5-5.1)
== END | disposition home or self-care (01) ==
LOC: D.LABREF 15:10
PROVIDERS: ATTEND Family Medicine
DX: I48.91 Unspecified atrial fibrillation (principal)